=== PATIENT | female | born 1955 | race Caucasian/White ===

== ENCOUNTER 2020-10-03 17:09 | Emergency (ER) | payer BC ==
[2020-10-03] MEDS ORDERED: Sodium Chloride 0.9% 10 ML Syringe FLUSH PRN (17:22)
[2020-10-03] MEDS ORDERED: cefTRIAXone 2 GM Vial IVPUSH ONE (17:23)
[2020-10-03] MEDS ORDERED: Ondansetron 4 MG/2 ML SDV IVPUSH ONE (17:24)
[2020-10-03] MEDS ORDERED: Sodium Chloride 0.9% 1,000 ML IV SCH (17:30)
--- NOTE | 2020-10-03 17:35 | EDM.PDOC ---
ED HPI GENERAL MEDICAL PROBLEM - General Chief Complaint: Genitourinary Problem Stated Complaint: HIGH WHITE BLOOD COUNT Time Seen by Provider: 10/03/20 17:22 Source of Information: Reports: Patient, Old Records History Limitations: Reports: No Limitations - History of Present Illness INITIAL COMMENTS - FREE TEXT/NARRATIVE: Pt. presents to ER from clinic. Pt. presented to clinic with 10 day history of fever, chills, headache, back pain, fatigue, and some LLQ abdominal pain. Pt. states that the symptoms started about 10 days ago. She states that about 3 days ago, she developed diarrhea. Pt. states that she has not recently been on any antibiotics and has not recently been hospitalized. Pt. has some labs drawn at the clinic including CMP and CBC. Pt. was found to have leukocytosis (WBCs 27.7 with 81% neutrophils and 3% bands) as well as urine positive for nitrates and large leukocyte esterase. Pt. states that she is extremely fatigued and lightheaded. She complains of severe nausea on arrival to ER. Pt. denies any sore throat. No cough or chest congestion. No rhinorrhea or sore throat. Denies any substernal chest, jaw, arm, neck or back pain. Onset Date: 09/23/20 Location: Reports: Generalized Quality: Reports: Ache Associated Symptoms: Reports: Fever/Chills, Malaise, Nausea/Vomiting, Weakness - Related Data Allergies Allergy/AdvReac Type Severity Reaction Status Date / Time codeine Allergy Other Verified 10/03/20 17:47 hydrocodone Allergy Other Verified 10/03/20 17:47 Sulfa (Sulfonamide Allergy Other Verified 10/03/20 17:29 Antibiotics) Home Meds: Home Meds Acetaminophen [Tylenol] 325 mg PO Q4H PRN 10/03/20 [History] Aspirin 81 mg PO DAILY 10/03/20 [History] Calcium Carbonate/Vitamin D3 [Calcium Carbonate/Vitamin D 600 MG-200 Unit] 1 tab PO BIDMEALS 10/03/20 [History] Ferrous Sulfate 325 mg PO TID 10/03/20 [History] Magnesium 250 mg PO DAILY 10/03/20 [History] Mecobalamin [B-12] 1,000 mcg SL DAILY 10/03/20 [History] Multivitamin 1 each PO DAILY 10/03/20 [History] Vitamin B Complex 1 each PO DAILY 10/03/20 [History] ED ROS GENERAL - Review of Systems Review Of Systems: See Below Constitutional: Reports: Fever, Chills, Malaise, Weakness, Fatigue HEENT: Reports: No Symptoms Respiratory: Reports: No Symptoms Cardiovascular: Reports: No Symptoms Endocrine: Reports: No Symptoms GI/Abdominal: Reports: No Symptoms, Abdominal Pain, Diarrhea, Nausea : Reports: No Symptoms Musculoskeletal: Reports: Back Pain Skin: Reports: No Symptoms Neurological: Reports: Headache, Weakness Psychiatric: Reports: No Symptoms Hematologic/Lymphatic: Reports: No Symptoms Immunologic: Reports: No Symptoms ED EXAM, GENERAL - Physical Exam Exam: See Below Exam Limited By: No Limitations General Appearance: Alert, WD/WN, Mild Distress Eye Exam: Bilateral Eye: EOMI, Normal Inspection, PERRL Throat/Mouth: Normal Inspection, Normal Lips, Normal Teeth, Normal Oropharynx, Normal Voice, No Airway Compromise Head: Atraumatic, Normocephalic Neck: Normal Inspection, Supple, Non-Tender, Full Range of Motion Respiratory/Chest: No Respiratory Distress, Lungs Clear, Normal Breath Sounds, No Accessory Muscle Use, Chest Non-Tender Cardiovascular: Normal Peripheral Pulses, Regular Rate, Rhythm, No Edema, No JVD, No Murmur Peripheral Pulses: 4+: Radial (L) GI/Abdominal: Soft, Non-Tender (No significant tenderness on palpation. Pt. states that the discomfort is intermittent. No rebound or guarding.), No Distention, No Mass (Female) Exam: Deferred Rectal (Female) Exam: Deferred Back Exam: Normal Inspection, Full Range of Motion Extremities: Normal Inspection, Normal Range of Motion, Non-Tender, No Pedal Edema, Normal Capillary Refill Neurological: Alert, Oriented, CN II-XII Intact, Normal Cognition, Normal Reflexes, No Motor/Sensory Deficits Psychiatric: Normal Affect, Normal Mood Skin Exam: Warm, Dry, Intact, Normal Color, No Rash Course - Vital Signs Last Recorded V/S: Last Vital Signs Temp 36.8 C 10/03/20 17:13 Pulse 70 10/03/20 17:13 Resp 18 10/03/20 17:13 BP 130/83 10/03/20 17:13 Pulse Ox 98 10/03/20 17:13 - Orders/Labs/Meds Orders: Active Orders 24 hr Category Date Time Status CULTURE BLOOD [BC] Stat Lab 10/03/20 17:51 Received CULTURE BLOOD [BC] Stat Lab 10/03/20 18:00 Received CULTURE URINE [RM] Stat Lab 10/03/20 18:21 Received Blood Culture x2 Reflex Set [OM.PC] Stat Oth 10/03/20 17:41 Ordered Peripheral IV Insertion Adult [OM.PC] Routine Oth 10/03/20 17:22 Ordered Labs: Laboratory Tests 10/03/20 10/03/20 Range/Units 17:35 17:35 Lactic Acid 1.5 (0.4-2.0) mmol/L Magnesium 2.0 (1.8-2.4) mg/dL C-Reactive Protein 38.9 H (<=0.9) mg/dL Meds: Medications Discontinued Medications Generic Name Dose Route Start Last Admin Trade Name Freq PRN Reason Stop Dose Admin Ceftriaxone Sodium 2 gm 10/03/20 17:23 10/03/20 17:38 Ceftriaxone 2 Gm Vial IVPUSH 10/03/20 17:24 2 gm STAT ONE Administration Ciprofloxacin 2 packet 10/03/20 18:58 10/03/20 19:07 Take Home: Ciprofloxacin 500 Mg Tab, 2 Tab Pack PO 10/03/20 18:59 2 packet ONETIME ONE Administration Sodium Chloride 1,000 mls @ 1,000 mls/hr 10/03/20 17:30 10/03/20 17:45 Normal Saline IV 1,000 mls/hr ASDIRECTED SHABANA Administration Iopamidol 100 ml 10/03/20 18:00 10/03/20 18:05 Iopamidol 612 Mg/Ml 100 Ml Bottle IVPUSH 10/03/20 18:01 100 ml ONETIME ONE Administration Ondansetron HCl 4 mg 10/03/20 17:24 10/03/20 17:32 Ondansetron 4 Mg/2 Ml Sdv IVPUSH 10/03/20 17:25 4 mg ONETIME ONE Administration Ondansetron HCl 2 packet 10/03/20 18:59 10/03/20 19:06 Take Home: Ondansetron 4 Mg Tab.Dis, 2 Tab Pack PO 10/03/20 19:00 2 packet ONETIME ONE Administration Sodium Chloride 10 ml 10/03/20 17:22 Sodium Chloride 0.9% 10 Ml Syringe FLUSH ASDIRECTED PRN Keep Vein Open - Radiology Interpretation Free Text/Narrative:: CT abdomen and pelvis obtained with contrast. + L sided pyelonephritis. No other acute pathology noted. Departure - Departure Time of Disposition: 19:19 Disposition: Home, Self-Care 01 Clinical Impression: Pyelonephritis - Discharge Information Instructions: Pyelonephritis, Adult, [id number], Ciprofloxacin tablets, Probiotics Referrals: Halima Chavarria PA-C [Primary Care Provider] - Forms: ED Department Discharge Additional Instructions: Home to rest. Cipro 500mg 1 tab twice daily for 9 days total (starting tomorrow) Zofran ODT 4mg 1 tab every 8 hours as needed for nausea/vomiting Drink plenty of fluids. I would eat a very bland diet tomorrow. recheck in clinic in 10 days. Return to ER if you start feeling worse (lightheaded, are unable to hold down fluids, etc.) Sepsis Event Note (ED) - Evaluation Sepsis Screening Result: No Definite Risk - Focused Exam Vital Signs: Vital Signs Temp Pulse Resp BP Pulse Ox 10/03/20 17:13 36.8 C 70 18 130/83 98 - Problem List Review Problem List Initiated/Reviewed/Updated: Yes - My Orders Last 24 Hours: My Active Orders 10/03/20 17:22 Peripheral IV Insertion Adult [OM.PC] Routine 10/03/20 17:41 Blood Culture x2 Reflex Set [OM.PC] Stat 10/03/20 17:51 CULTURE BLOOD [BC] Stat 10/03/20 18:00 CULTURE BLOOD [BC] Stat 10/03/20 18:21 CULTURE URINE [RM] Stat - Assessment/Plan Last 24 Hours: My Active Orders 10/03/20 17:22 Peripheral IV Insertion Adult [OM.PC] Routine 10/03/20 17:41 Blood Culture x2 Reflex Set [OM.PC] Stat 10/03/20 17:51 CULTURE BLOOD [BC] Stat 10/03/20 18:00 CULTURE BLOOD [BC] Stat 10/03/20 18:21 CULTURE URINE [RM] Stat Plan: Pt. was given rocephin 2 gm IV and a liter of normal saline in ER. She was also given zofran 4mg IV for nausea. Pt. reports that she felt much improved at time of discharge. Discussed possibility of admitting the patient but pt. wishes to go home. She lives with her who will return if she starts feeling poorly or is unable to hold down fluids. Pt. was started on cipro 500mg BID for a total of 9 days (total 10 days of antibiotics). She was also given zofran ODT 4mg with instructions to take one every 8 hours as needed for nausea/vomiting. Encouraged to drink plenty of fluids. I would like her to follow-up in clinic in 10 days to ensure resolution of infection. She was advised to completely finish her course of antibiotics.
[2020-10-03] MEDS ORDERED: Iopamidol 612 MG/ML 100 ML Bottle IVPUSH ONE (18:00)
--- NOTE | 2020-10-03 18:51 | CT ---
[id number] CT/CT Abdomen Pelvis W IV EXAM: ABDOMEN AND PELVIS CT WITH CONTRAST INDICATION: ABDOMINAL PAIN, ELEVATED WHITE COUNT. COMPARISON: None. DISCUSSION: Ill-defined hypoenhancement in the mid to upper pole of the left kidney most suggestive of pyelonephritis. No hydronephrosis, calculi, abscess or other complicated features. Prior cholecystectomy, appendectomy, hysterectomy and gastric bypass. Small sliding type hiatus hernia. Mild pectus excavatum. The liver, spleen, pancreas, adrenal glands, right kidney, and large bowel are normal in appearance. No adenopathy, free air free fluid. Scattered degenerative changes in the spine. IMPRESSION: 1. Findings most suggestive of left pyelonephritis. Jorge Lynn MD 10/03/20 0457 Thank you for allowing us to participate in the care of your patient.
[2020-10-03] MEDS ORDERED: Take Home: Ciprofloxacin 500 MG Tab, 2 Tab Pack PO ONE (18:58)
[2020-10-03] MEDS ORDERED: Take Home: Ondansetron 4 MG Tab.DIS, 2 Tab Pack PO ONE (18:59)
== END 2020-10-03 19:19 | disposition home or self-care (01) ==
LOC: VM.ED 17:09
DX: N12 Tubulo-interstitial nephritis, not specified as acute or chronic (principal); Z88.5 Allergy status to narcotic agent; Z88.2 Allergy status to sulfonamides; Z79.82 Long term (current) use of aspirin
CPT/HCPCS: 36415; 74177; 83605; 83735; 86140; 87040; 87086; 96374; 96375; 99284; 99284-25; A9270-GY; J0696; J2405; J7030; Q9967